=== PATIENT | male | born 1945 | race Caucasian/White ===

== ENCOUNTER 2020-08-20 07:19 | Day surgery (SDC) | payer MEDICARE, OTHER ==
--- NOTE | 2020-08-14 09:42 | HP ---
DATE OF SURGERY: 08/20/2020 HISTORY OF PRESENT ILLNESS: The patient presents with follow up colonoscopy. Last colonoscopy was five years ago and he had some colon polyps. He denies any family history of colon cancer. He denies any gastrointestinal signs or symptoms at this time. PAST MEDICAL HISTORY: Asthma. Hypertension. Restless leg. Benign prostatic hypertrophy. Depression. PAST SURGICAL HISTORY: Appendectomy. ALLERGIES: NKDA. MEDICATIONS: Losartan, doxazosin, fluoxetine, tamsulosin, pramipexole, Albuterol. FAMILY HISTORY: Heart disease. SOCIAL HISTORY: Negative. REVIEW OF SYSTEMS: CONSTITUTIONAL: Denies fever or chills. CHEST: Denies shortness of breath. CVS: Denies chest pain. ABDOMEN: Denies abdominal pain, nausea, vomiting, diarrhea, constipation or rectal bleeding. INTEGUMENTARY: Negative. PHYSICAL EXAMINATION: GENERAL: No acute distress. HEENT: No jaundice. Oral mucosa moist. NECK: No JVD. CHEST: Nonlabored. No shortness of breath. CVS: Regular rate and rhythm. ABDOMEN: Soft, nontender to palpation. EXTREMITIES: No edema. NEUROLOGIC: Alert. PSYCHIATRIC: Appropriate. IMPRESSION: The patient has history of colon polyps. PLAN: Colonoscopy with Dr. Juventino Mar. As dictated by Briseida Blanco NP.
[~2020-08-20 07:19] MED LIST: DIPRIVAN 200 MG/20 ML IV ONE
[2020-08-20] MEDS ORDERED: Lactated Ringers 1,000 ML IV SCH (08:00)
[2020-08-20 10:59] VITALS: O2SAT 97
[2020-08-20 11:27] VITALS: BP 126/69; PULSE 72
--- NOTE | 2020-08-20 12:40 | OP ---
SURGERY DATE/TIME: 08/20/2020 0955 PREOPERATIVE DIAGNOSIS: Five year follow up for polyps. POSTOPERATIVE DIAGNOSIS: Moderate diverticulosis. PROCEDURE: Colonoscopy complete to cecum. SURGEON: Juventino Mar M.D. ANESTHESIA: MAC. COMPLICATIONS: None. CONDITION: Stable. INDICATION: A patient requiring follow up of polyps. DESCRIPTION OF PROCEDURE: Taken to endoscopy. Left lateral decubitus position. Anal digital examination satisfactory. Scope introduced. Scope advanced to the cecum. Base of the cecum, ileocecal valve was normal. Ascending, hepatic, transverse, splenic, descending normal. Moderate diverticulosis sigmoid. Rectum and anus satisfactory. PLAN: Follow up in five years.
== END 2020-08-20 11:25 | disposition home or self-care (01) ==
LOC: SDC 07:19
PROVIDERS: ATTEND Surgery
DX: Z09 Encounter for follow-up examination after completed treatment for conditions other than malignant neoplasm (principal); Z86.010 Personal history of colon polyps; K57.30 Diverticulosis of large intestine without perforation or abscess without bleeding
CPT/HCPCS: 99100; J2704

== ENCOUNTER 2024-02-15 10:58 | Day surgery (SDC) | payer MEDICARE, OTHER ==
--- NOTE | 2024-02-14 10:05 | HP ---
DATE OF SURGERY: 02/15/2024 HISTORY OF PRESENT ILLNESS: The patient is an 78-year-old male presents with complaints of left elbow lesion. He is also complaining of left neck lesion. The patient was seen by Dr. Juventino Mar in the office. There is not much description on size or characteristics of these. The patient desires surgical excision. PAST MEDICAL HISTORY: Diabetes, hypertension, chronic kidney disease, benign prostatic hypertrophy, anxiety, depression, asthma, gout. PAST SURGICAL HISTORY: Tonsillectomy. Cholecystectomy. ALLERGIES: NKDA. MEDICATIONS: Tamsulosin, pramipexole, losartan, Advair, doxazosin, metformin, gabapentin, fluoxetine, albuterol, cetirizine. FAMILY HISTORY: Heart disease. Kidney disease. Esophageal cancer. SOCIAL HISTORY: Negative. REVIEW OF SYSTEMS: CONSTITUTIONAL: Denies fever or chills. CHEST: Denies shortness of breath. CVS: Denies chest pain. ABDOMEN: Denies abdominal pain. PHYSICAL EXAMINATION: GENERAL: No acute distress. CHEST: Nonlabored. No shortness of breath. CVS: Regular rate and rhythm. ABDOMEN: Soft. IMPRESSION: Left elbow lesion and left neck lesion. PLAN: Excision and closure of left elbow lesion and left neck lesion with Dr. Juventino Mar. As dictated by Briseida Blanco NP.
[2024-02-15] MEDS ORDERED: Lactated Ringers 1,000 ML IV ONE (11:56)
[2024-02-15] MEDS ORDERED: CEFAZOLIN 2 GM-D5W BAG** 2 GM/50 ML ML IV ONE (11:56)
[2024-02-15] MEDS: Lactated Ringers 1,000 ML IV SCH (12:00)
[2024-02-15] MEDS: CEFAZOLIN 2 GM-D5W BAG** 2 GM/50 ML ML IV SCH (12:00)
[2024-02-15 12:12] LABS: Absolute Neutrophil Ct (ANC) 3.98 x10^3/uL (1.4-6.9); BASOPHIL % 0.7 % (0.0-0.4); Basophil (Absolute #) 0.04 x10^3/uL (0-0.4); Hematocrit 42.3 % (42-50); Hemoglobin 13.9 g/dL (12.5-18.0); IMMATURE GRAN # 0.02 x10^3u/L (0.00-0.03); IMMATURE GRAN % 0.3 % (0.00-0.4); Lymphocyte (Absolute #) 1.23 x10^3/uL (1.0-4.6); Lymphocytes % 20.3 % (24.0-44.0); Mean Cell Volume 91.6 fL (78-100); Mean Corpuscular Hemoglobin 30.1 pg (26-32); Mean Corpuscular Hgb Concent. 32.9 g/dL (32-36); Mean Platelet Volume 10.7 fL (7.5-11.0); Monocyte (Absolute #) 0.48 x10^3/uL (0.0-1.3); Monocytes % 7.9 % (0.0-12.0); Neutrophil % 65.8 % (36.0-66.0); Platelet Count 272 x10^3/uL (150-450); Red Blood Count 4.62 x10^6/uL (4.1-5.6); White Blood Count 6.1 x10^3/uL (4.0-10.5)
[2024-02-15 12:29] LABS: ALBUMIN 3.6 g/dL (3.5-5.0); ANION GAP 9.2 MEQ/L (5-15); BILIRUBIN,TOTAL 0.7 mg/dL (0.2-1.3); Calcium 8.9 mg/dL (8.4-10.2); Creatinine 1 1.14 mg/dL (0.66-1.25); Potassium 4.5 mmol/L (3.5-5.1); Total Protein 6.5 g/dL (6.3-8.2)
[2024-02-15] MEDS ORDERED: SUBLIMAZE 100 MCG/2 ML ONE (12:37)
[2024-02-15] MEDS ORDERED: DEXMEDETOMIDINE 80 MCG/20ML-NS IV ONE (12:37)
[2024-02-15] MEDS ORDERED: Xylocaine-Mpf 2% 5 Ml Vial ONE (12:37)
[2024-02-15] MEDS ORDERED: DIPRIVAN 200 MG/20 ML IV ONE ×2 (12:37→13:03)
[2024-02-15] MEDS ORDERED: Sensorcaine 0.25% 10 ML ONE ×2 (12:37→13:13)
[2024-02-15] MEDS ORDERED: Ephedrine Sulfate 50 MG/ML ONE (13:19)
[2024-02-15 14:23] VITALS: RESP 18; O2SAT 95
[2024-02-15 14:28] VITALS: BP 140/78; PULSE 64; TEMP 97.8
--- NOTE | 2024-02-16 08:50 | OP ---
SURGERY DATE/TIME: 02/15/2024 1236 PREOPERATIVE DIAGNOSES: 1) A 6 cm lipoma posterior left nuchal area. 2) A 1.5 cm atypical lesion left elbow. POSTOPERATIVE DIAGNOSES: 1) A 6 cm lipoma posterior left nuchal area. 2) A 1.5 cm atypical lesion left elbow. PROCEDURES: 1) Excision and closure of 6 cm lipomatous subcutaneous mass on the back of left neck. 2) Excision and closure 1.5 cm irregular skin lesion left posterior elbow. SURGEON: Juventino Mar M.D. ANESTHESIA: MAC. COMPLICATIONS: None. CONDITION: Stable. DESCRIPTION OF PROCEDURE: The patient has two lesions. The neck was addressed first. A transverse incision. It was deep. It was totally removed. It was unilocular. Hemostasis obtained with electrocautery. Closed with vertical mattress 3-0 Prolene. The elbow lesion elliptically excised and closed with running suture #4 Prolene. Sterile dressing applied. The patient tolerated the procedure satisfactorily.
== END 2024-02-15 14:32 | disposition home or self-care (01) ==
LOC: SDC 10:58
PROVIDERS: ATTEND Surgery
DX: D17.0 Benign lipomatous neoplasm of skin and subcutaneous tissue of head, face and neck (principal); L82.0 Inflamed seborrheic keratosis; E11.9 Type 2 diabetes mellitus without complications; I10 Essential (primary) hypertension
CPT/HCPCS: 36415; 80053; 85025; 93005; 99100; J0690; J2704; J3010